=== PATIENT | female | born 1960 | race Caucasian/White ===

== ENCOUNTER → 2016-11-04 | Outpatient (CLI) | payer OTHER ==
[~2016-11-04] MED LIST: CHLO25CA9 PO; CYAN1TAB PO; LORA1TAB PO; NICO-524 TRANSDERM
--- NOTE | 2016-11-04 19:47 | RADRPT ---
PROCEDURE: XR LEFT HIP. CLINICAL INDICATION: Left hip pain TECHNIQUE: 3 views of the left hip were performed. COMPARISON: CT scan dated 03/13/2014. FINDINGS: Since the prior CT scan, there has been progression of severe arthrosis of the right hip joint. Ther e is loss of sphericity of the femoral head and there is subcortical mixed sclerosis and lucency whi ch is most likely advanced arthrosis although it would be difficult to exclude avascular necrosis. L oss of sphericity indicates cortical collapse. Findings consist of bone on bone joint space narrowi ng with subcortical sclerosis and cyst formation and osteophyte formation. There is trochanteric en thesopathy. Bones are osteopenic. No acute fractures seen. No erosive changes are seen. IMPRESSION: 1. Progression of severe arthrosis of the right hip joint including loss of sphericity indicating c ortical collapse. 2. Subcortical mixed lucency and sclerosis is most likely advanced arthrosis but it would be diffic ult to exclude superimposed avascular necrosis. RPTAT: XX .Dante Blanton MD, MD Date Time Electronically viewed and signed by .Dante Blanton MD, on 11/04/2016 19:46 .T/
== END | disposition home or self-care (01) ==
LOC: HKI 10:37
PROVIDERS: ATTEND Orthopaedic Surgery
DX: M25.551 Pain in right hip (principal); M16.11 Unilateral primary osteoarthritis, right hip
CPT/HCPCS: 73502; G0463

== ENCOUNTER → 2017-01-25 | Outpatient (CLI) | payer OTHER | END | disposition home or self-care (01) | LOC: HKI 09:55 | PROVIDERS: ATTEND Orthopaedic Surgery | DX: M25.551 Pain in right hip (principal); M16.11 Unilateral primary osteoarthritis, right hip | CPT/HCPCS: G0463 ==

== ENCOUNTER 2017-01-31 05:06 | Inpatient (IN) | payer OTHER ==
[2017-01-25 12:46] VITALS: BMI 23.3
[~2017-01-31] VITALS: Ht 158.8 cm; Wt 57.3 kg
[2017-01-31] VITALS (25 sets, daily range): BP systolic 115–157; BP diastolic 60–83; PULSE 60–86; RESP 16–30; Ht 158.8 cm; Wt 57.3 kg
[2017-01-31] MEDS ORDERED: ONDANSETRON 4 MG IV X 1 DOSE IV ONE (06:00)
[2017-01-31] MEDS ORDERED: CEFAZOLIN 2GM/50 ML (PMX) 50 ML X1 BEFORE INCISION IVPB ONE (06:00)
[2017-01-31] MEDS: LACTATED RINGER'S 1,000 ML IV SCH ×4 (06:00→17:49)
[2017-01-31] MEDS ORDERED: TRANEXAMIC ACID IV ONE ×2 (06:00)
[2017-01-31] MEDS ORDERED: SODIUM CHLORIDE 0.9% IV ONE ×2 (06:00)
[2017-01-31] MEDS ORDERED: oxyCODONE (CR) 10 MG TAB [oxyCONTIN] X1 DOSE PO ONE (06:00)
[2017-01-31] MEDS ORDERED: PREGABALIN 300 MG PO X1 PO ONE (06:00)
[2017-01-31] MEDS ORDERED: traMADOL 50 MG TAB X 1 DOSE PO ONE (06:00)
[2017-01-31] MEDS ORDERED: CEFAZOLIN 1 GM INJ ONE (07:00)
[2017-01-31] MEDS ORDERED: EPHEDrine SULFATE 50 MG/5 ML SYG ONE (07:00)
[2017-01-31] MEDS ORDERED: BUPIVACAINE LIPOSOME/PF 266 MG/20 ML VIAL INFIL ONE (07:00)
[2017-01-31] MEDS ORDERED: PAIN COCKTAIL-CEFUROXIME IRR ONE ×7 (07:00)
[2017-01-31] MEDS ORDERED: POTASSIUM PO (07:03)
[2017-01-31] MEDS ORDERED: MAGN400T28 PO (07:03)
[2017-01-31] MEDS ORDERED: CHOL100062 PO (07:03)
[2017-01-31] MEDS: TRANEXAMIC ACID IVPB ONE ×2 (07:14→08:17)
[2017-01-31] MEDS: SOD CHLORIDE 0.9% IVPB ONE ×2 (07:14→08:17)
--- NOTE | 2017-01-31 07:15 | HPN ---
Date/Time of Note Date/Time of Note DATE: 01/31/17 TIME: 07:15 Interval H&P Admission Note Pt. seen H&P reviewed: No system changes No changes from H&P on 01/19/17 by JESSICA Hickman MD Jan 31, 2017 07:15
[2017-01-31] MEDS ORDERED: POLYMYXIN B 500000 UNIT INJ IRR ONE (08:14)
[2017-01-31] MEDS ORDERED: VANCOMYCIN 1 GM INJ IRR ONE (08:14)
[2017-01-31] MEDS ORDERED: BACITRACIN 50000 UNITS INJ IRR ONE (08:14)
[2017-01-31] MEDS ORDERED: SODIUM CL BACTERIOSTATIC 30 ML INJ INJ ONE (08:15)
[2017-01-31] MEDS ORDERED: ONDANSETRON 4 MG INJ IV PRN ×2 (10:00→10:30)
[2017-01-31] MEDS ORDERED: NA PHOSPHATE/BIPHOS 133 ML ENEMA PR PRN (10:00)
[2017-01-31] MEDS ORDERED: MAGNESIUM HYDROXIDE 30ML CUP PO PRN (10:00)
[2017-01-31] MEDS ORDERED: NACL 0.9% 3 ML SYG IV SCH (10:00)
[2017-01-31] MEDS ORDERED: BISACODYL 10 MG SUPP PR PRN (10:00)
[2017-01-31] MEDS ORDERED: ASPIRIN (EC) 325 MG TAB PO ONE (10:00)
--- NOTE | 2017-01-31 10:02 | PN ---
Date/Time of Note Date/Time of Note DATE: 01/31/17 TIME: 10:00 Assessment/Plan Lines/Catheters IV Catheter Type (from Nrsg): Peripheral IV Assessment/Plan Assessment/Plan Stable in PACU, s/p right anterior HUMBLE -continue Ancef -pain meds as needed -ASA/SCDs -OOB with PT -check AM labs -monitor drain -d/c estrella in AM XR of the right hip is pending at this time Subjective 24 Hr Interval Summary Stable in PACU. Eating ice chips. Denies pain. Moving all extremities. Exam/Review of Systems Vital Signs Vitals Vital Signs Date Time Temp Pulse Resp B/P Pulse Ox O2 Delivery O2 Flow Rate FiO2 01/31/17 05:49 97.2 60 18 142/83 97 Room Air Exam Free Text/Dictation Hemovac: minimal Dressing dry Incision clean, dry, and intact without redness or drainage 5/5 Quadriceps, Tibialis Anterior, EHL, Gastroc, Soleus, Peroneals Normal sensation Palpable DT/PT, CR <2 sec No distal edema FARZANA CABRERA PA-C Jan 31, 2017 10:02
--- NOTE | 2017-01-31 10:03 | OPR ---
Date/Time of Note Date/Time of Note DATE: 01/31/17 TIME: 10:00 Operative Report Anesthesia: general Procedure Description DATE: 01/31/2017 PREOPERATIVE DIAGNOSIS: Right hip osteoarthritis POSTOPERATIVE DIAGNOSIS: Right hip osteoarthritis OPERATION PERFORMED: Right anterior total hip arthroplasty SURGEON: Jessica Logan MD SYSTEMS ADMINISTRATOR: Trev Burton PA-C COMPONENTS USED: DePuy size 48 mm Gription [place] cup, one 6.5 millimeter screw, 48/32 neutral Ultrex polyethylene liner, size 3 standard Actis stem, 32+ 5 ceramic head ANESTHESIA: Spinal plus general endotracheal intubation. ANESTHESIOLOGIST: Jackie Carmichael M.D. ESTIMATED BLOOD LOSS: 300 cc INTRAVENOUS FLUIDS: 1900 cc crystalloid SPECIMENS: Femoral head. DRAINS: Hemovac 1 COMPLICATIONS: None. DISPOSITION: The patient tolerated the procedure well and was taken to the recovery room in stable condition. INDICATIONS: The patient is a 56-year-old woman who has developed progressively worsening pain in the right hip with radiographic evidence of severe osteoarthritis. She has failed nonsurgical means of treatment to address her pain. I felt the patient would benefit from a total hip arthroplasty through an anterior approach. The risks, benefits, and alternatives of the procedure were explained in detail to the patient. I explained the risks of the surgery to include, but not be limited to: bleeding and possible need for blood transfusion; infection; pain; stiffness; neurovascular injury with possible numbness, weakness, and/or paralysis anywhere from the hip down to the toes; fracture; instability; dislocation; leg length inequality; wear and/or loosening of the prosthesis and possible need for future revision; blood clots; pulmonary embolism; and anesthetic complications such as heart attack, stroke, GI bleed, pneumonia, and/ or . Ample time was allowed for the patient to ask questions, all of which were addressed and answered. The patient understood the risks involved and wished to proceed. Informed consent was signed prior to the procedure. PROCEDURE: The patient's right hip was initialed with a marking pen in the preoperative area to identify the correct operative site. The patient was brought to the operating room and transferred from the [facility] to the [facility] where a spinal anesthetic was administered. The patient was then anesthetized and intubated. A Nunn catheter was placed. Both feet were placed into well padded boots which were then placed into the leg holders of the traction booms. A timeout was performed to confirm that the right side was the correct operative site. The patient was given 2 g of intravenous Ancef within one hour prior to the procedure. The operative hip was prepped and draped in the usual sterile fashion. A 10 cm oblique incision was made over the anterior aspect of the hip and carried down through subcutaneous tissue and fat with sharp dissection. The tensor fascia yousif was incised along the length of the wound. The tensor fascia muscle was retracted laterally and the sartorius medially. The anterior circumflex vessels were identified and tied off with 2-0 silk suture and coagulated with the Tissue Link dobby loom chain pegger. The rectus femoris was elevated off the anterior capsule and an anterior capsulectomy performed. A femoral neck osteotomy was made and the head removed from the acetabulum. The acetabulum was denuded of cartilage circumferentially, as was the femoral head. Retractors were placed around the acetabulum. The remnants of the labrum and ligamentum teres were excised. I reamed the acetabulum to the medial wall and then went into an anatomic position and increased the reamer size in 2 mm increments until I got a good bite and was down to bleeding subchondral bone. The [place] cup was opened and impacted into the acetabulum and sat flush circumferentially, getting a good bite. C-arm imaging showed it had about 40 to 45 degrees of abduction and 20 degrees of anteversion. A single 6.5 screw was drilled and filled to appropriate length, getting a good bite. remove this sentence if no screws are utilized] The real liner was opened and impacted into the acetabulum and sat flush circumferentially. Attention was turned towards the femur. The operative leg was carefully lowered to the floor with the leg adducted. The foot was then externally rotated to approximately 110 degrees. A posteromedial release was performed to optimize exposure. The femoral hook was placed underneath the proximal femur and the hydraulic lift was then used to elevate the femur up out of the wound. The gisselle cutter osteotome was used to remove the remaining overhanging greater trochanter. The femur was then broached, going up in one size increments until it sat flush with the neck cut and a stable fit was achieved. The trial neck and head were assembled and reduced into the acetabulum. Fluoroscopic imaging showed the components to be in good position and the leg lengths and offsets to be equal. At this point, the trial was dislocated and the trial broach removed. The canal was irrigated and dried. The real stem was opened and impacted into the femur. The trunnion was irrigated and dried, and the real femoral head was impacted onto the trunnion, and reduced into the acetabulum. The soft tissues were infiltrated with a mixture of 150 mg of 0.5% Bupivacaine, 8 mg of Duramorph, 300 mcg of epinephrine, 30 mg of Toradol, 100 mcg of clonidine, 750 mg of cefuroxime and 86 mL of normal saline, followed by an injection of 266 mg of liposomal Bupivacaine. At this point the hip was irrigated with a mixture of betadine/saline and then antibiotic saline with pulsatile lavage. A Hemovac drain was placed in the deep portion of the wound and brought out the anterolateral thigh. There was good hemostasis. The tensor fascia yousif was repaired with a running #1 Vicryl. The deep fat layer was irrigated and closed with 2-0 Stratafix and the subcutaneous layer closed with 3 -0 Vicryl and the skin was closed with luly and then sealed with Dermabond. The drain was secured with 3-0 nylon. The sponge and needle counts were correct at the end of the case. The wound was covered with an occlusive dressing. The patient was awakened, extubated, and taken to the recovery room in stable condition. JESSICA LOGAN MD Jan 31, 2017 10:03
[2017-01-31] MEDS ORDERED: METOCLOPRAMIDE 10 MG INJ IV PRN (10:30)
[2017-01-31] MEDS ORDERED: DIPHENHYDRAMINE 50 MG INJ IV PRN (10:30)
[2017-01-31] MEDS ORDERED: HYDROmorphONE (0.2 MG/ML) 10ML SYG IV PRN ×3 (10:30)
[2017-01-31] MEDS ORDERED: MEPERIDINE 25 MG INJ IV PRN (10:30)
[2017-01-31] MEDS: CEFAZOLIN 2 GM/50 ML (PMX) 50 ML IVPB SCH ×2 (10:42→17:50)
--- NOTE | 2017-01-31 11:32 | RADRPT ---
PROCEDURE: XR Pelvis. CLINICAL INDICATION: Recent right hip arthroplasty TECHNIQUE: Single AP view of the pelvis. COMPARISON: 11/04/2016 FINDINGS: There is a recent right hip arthroplasty in place with anatomic alignment. No acute fracture or dis location is seen. Postsurgical skin luly and soft tissue drain and gas is seen. Bladder cathete r is also present. Remainder of the pelvis appears intact without evidence of fractures or dislocat ion. Left hip is unremarkable.. Sacroiliac joints and pubic symphysis are unremarkable. IMPRESSION: Recent right hip arthroplasty. RPTAT: JJ .Wilfredo Alvarez MD, MD Date Time Electronically viewed and signed by .Wilfredo Alvarez MD, MD on 01/31/2017 11:32 .L/
--- NOTE | 2017-01-31 11:33 | RADRPT ---
PROCEDURE: Right hip series CLINICAL INDICATION: Right hip arthroplasty TECHNIQUE: Single AP view of the right hip is submitted COMPARISON: 11/04/2016 FINDINGS: There has been recent right hip arthroplasty with anatomic alignment. No evidence of fractures or d islocation.. Postsurgical changes with skin luly and soft tissue drain and gas are present. Visu alized portions of the pelvis are intact. IMPRESSION: Recent right hip arthroplasty. RPTAT: JJ .Wilfredo Alvarez MD, MD Date Time Electronically viewed and signed by .Wilfredo Alvarez MD, on 01/31/2017 11:32 .L/
--- NOTE | 2017-01-31 11:36 | RADRPT ---
PROCEDURE: Fluoroscopy CLINICAL INDICATION: Right hip arthroplasty. TECHNIQUE: 0.5 minutes fluoroscopic time utilized by Dr. Mccoy for procedure. 16 images/sequences of are submitted. COMPARISON: None FINDINGS: Right hip arthroplasty in progress is demonstrated. IMPRESSION: Fluoroscopy utilized by Dr. Mccoy for right hip arthroplasty Please see procedural report for complete details. RPTAT: JJ .Wilfredo Alvarez MD, Date Time Electronically viewed and signed by .Wilfredo Alvraez MD, on 01/31/2017 11:36 .L/
[2017-01-31 11:40] LABS: HEMATOCRIT 34.1 % (37.0-47.0); HEMOGLOBIN 11.5 g/dl (12.0-16.0)
[2017-01-31 11:42] LABS: CALCIUM 8.9 mg/dl (8.4-10.2); CREATININE 0.44 mg/dl (0.44-1.00); POTASSIUM 4.1 mmol/L (3.5-5.1)
--- NOTE | 2017-01-31 12:55 | PREOPHP ---
DATE OF ADMISSION: 01/31/2017 Dictated By: Tejinder Mccoy MD /brent/vijaya /Document#: [id number]
[2017-01-31] MEDS ORDERED: TRANEXAMIC ACID 570 MG in SOD CHLORIDE 0.9% 100 ML IVPB ONE ×2 (13:00→16:00)
[2017-01-31] MEDS: traMADol 50 MG TAB PO SCH ×3 (13:55→23:59)
[2017-01-31] MEDS ORDERED: EXPAREL NOTE (BUPIVICAINE LIPOSOMAL) XX SCH (16:00)
[2017-01-31] MEDS: PANTOPRAZOLE (EC) 40 MG TAB PO SCH (17:48)
[2017-01-31] MEDS: DOCUSATE SODIUM 100 MG CAP PO SCH (20:22)
[2017-01-31] MEDS: CHOLECALCIFEROL 1,000 UNIT TAB PO SCH (20:23)
[2017-01-31] MEDS: MAGNESIUM OXIDE 400 MG TAB PO SCH (20:23)
[2017-01-31] MEDS: DIPHENHYDRAMINE 25 MG CAP PO PRN (20:24)
[2017-01-31] MEDS: HYDROmorphONE 1 MG/ML SYG IV PRN ×2 (20:24→23:39)
[2017-01-31] MEDS: DIPHENHYDRAMINE 50 MG INJ IV PRN (21:34)
[2017-02-01] MEDS: LACTATED RINGER'S 1,000 ML IV SCH ×6 (01:49→22:00)
[2017-02-01] MEDS: CEFAZOLIN 2 GM/50 ML (PMX) 50 ML IVPB SCH (02:02)
[2017-02-01] MEDS: HYDROmorphONE 1 MG/ML SYG IV PRN ×3 (03:19→20:17)
[2017-02-01 05:20] LABS: HEMOGLOBIN 10.9 g/dl (12.0-16.0)
[2017-02-01] MEDS: PANTOPRAZOLE (EC) 40 MG TAB PO SCH ×2 (05:35→18:15)
[2017-02-01] MEDS: traMADol 50 MG TAB PO SCH ×4 (05:36→23:54)
[2017-02-01 05:38] LABS: CALCIUM 8.6 mg/dl (8.4-10.2); CREATININE 0.51 mg/dl (0.44-1.00); POTASSIUM 4.1 mmol/L (3.5-5.1)
[2017-02-01 05:54] LABS: MAGNESIUM 1.1 mg/dl (1.7-2.5); PHOSPHORUS 3.7 mg/dl (2.5-4.9)
[2017-02-01 06:39] LABS: ADD UMIC NO; UR ASCORBIC ACID NEGATIVE (NEGATIVE); UR BILIRUBIN (Dip) NEGATIVE (NEGATIVE); UR BLOOD (Dip) NEGATIVE (NEGATIVE); UR CLARITY CLEAR (CLEAR); UR COLOR STRAW (YELLOW); UR GLUCOSE (Dip) NEGATIVE (NEGATIVE); UR KETONES (Dip) NEGATIVE (NEGATIVE); UR LEUKOCYTE ESTERASE (Dip) NEGATIVE Leu/ul (NEGATIVE); UR NITRITE (Dip) NEGATIVE (NEGATIVE); UR SPECIFIC GRAVITY (Dip) 1.014 (1.003-1.030); UR TOTAL PROTEIN (Dip) NEGATIVE (NEGATIVE); UR UROBILINOGEN (Dip) NEGATIVE (NEGATIVE)
[2017-02-01 07:00] VITALS: BP 131/70; RESP 20
[2017-02-01] MEDS: HYDROCODONE/APAP (5/325) TAB PO PRN ×2 (07:55→07:59)
--- NOTE | 2017-02-01 08:36 | CONS ---
Date/Time of Note Date/Time of Note DATE: 02/01/17 TIME: 08:34 Assessment/Plan Assessment/Plan Additional Assessment/Plan 1. S/P right hip replacement, with severe pain, await ortho follow up 2. Hypomag, will replete Consultation Date/Type/Reason Admit Date/Time Jan 31, 2017 at 05:06 Initial Consult Date Detailed Summary Respiratory: No shortness of breath Cardiovascular: No chest pain Gastrointestinal: no complaints Genitourinary: other (estrella in place) Musculoskeletal: bone/joint pain (severe right hip pain which is limiting movement) Exam/Review of Systems Vital Signs Vitals Vital Signs Date Time Temp Pulse Resp B/P Pulse Ox O2 Delivery O2 Flow Rate FiO2 02/01/17 07:00 98.6 104 20 131/70 95 01/31/17 19:52 Room Air 01/31/17 14:25 2.0 Intake and Output 01/31/17 01/31/17 02/01/17 15:00 23:00 07:00 Intake Total 2111.4 ml 1225 ml 2675 ml Output Total 500 ml 450 ml 2120 ml Balance 1611.4 ml 775 ml 555 ml Exam Neck: No jvd Respiratory: clear to auscultation Cardiovascular: regular rate and rhythm Gastrointestinal: soft Extremities: No edema (and no calf tend) Results Result Diagram: 02/01/17 0437 02/01/17 0437 Results 24 hrs Laboratory Tests Test 01/31/17 10:43 02/01/17 04:20 02/01/17 04:37 Hemoglobin 11.5 L 10.9 L Hematocrit 34.1 L 32.0 L Sodium Level 145 H 139 Potassium Level 4.1 4.1 Chloride Level 102 97 Carbon Dioxide Level 29 31 Anion Gap 18 H 15 Blood Urea Nitrogen 8 4 L Creatinine 0.44 0.51 Glucose Level 88 134 # Calcium Level 8.9 8.6 Urine Color STRAW Urine Clarity CLEAR Urine pH 5.0 Urine Specific [place] 1.014 Urine Ketones NEGATIVE Urine Nitrite NEGATIVE Urine Bilirubin NEGATIVE Urine Urobilinogen NEGATIVE Urine Leukocyte Esterase NEGATIVE Urine Hemoglobin NEGATIVE Urine Glucose NEGATIVE Urine Total Protein NEGATIVE Phosphorus Level 3.7 Magnesium Level 1.1 L Medications Medications Current Medications Lactated Ringer's (Lr) 1,000 ml @ 100 mls/hr Q10H IV Last administered on 02/01t 02:02; Admin Dose 100 MLS/HR; Start 01/31/17 at 06:00 Miscellaneous Information 1 ea NOTE XX ; Start 01/31/17 at 16:00; Stop 02/04/17 at 15:59 Cholecalciferol (Vitamin D) 1,000 unit BID PO Last administered on 01/31/17 20 :23; Admin Dose 1,000 UNIT; Start 01/31/17 at 21:00 Magnesium Oxide 500 mg 500 mg BID PO Last administered on 01/31/17 20:23; Admin Dose 500 MG; Start 01/31/17 at 21:00 Lactated Ringer's (Lr) 1,000 ml @ 125 mls/hr Q8H IV Last administered on 13:58; Admin Dose 125 MLS/HR; Start 01/31/17 at 09:49 Tramadol HCl (Ultram) 50 mg Q6 PO Last administered on 02/01/17 05:36; Admin Dose 50 MG; Start 01/31/17 at 12:00; Stop 02/03/17 at 11:59 Acetaminophen/ Hydrocodone Bitart ([place] (5/325)) 1 tab Q4H PRN PO PAIN LEVEL 1 -3; Start 01/31/17 at 10:00 Acetaminophen/ Hydrocodone Bitart ([place] (5/325)) 2 tab Q4H PRN PO PAIN LEVEL 4 -7 Last administered on 02/01/17 07:59; Admin Dose 2 TAB; Start 01/31/17 at 10: 00 Hydromorphone HCl (Dilaudid) 1 mg Q3H PRN IV PAIN LEVEL 8-10 Last administered on 02/01/17 03:19; Admin Dose 1 MG; Start 01/31/17 at 10:00 Ondansetron HCl (Zofran Inj) 4 mg Q6H PRN IV NAUSEA AND/OR VOMITING; Start at 10:00 Bisacodyl (Dulcolax Supp) 10 mg Q12H PRN [place] CONSTIPATION; Start 01/31/17 at 10: 00 Magnesium Hydroxide (Milk Of Mag) 30 ml BID PRN PO CONSTIPATION; Start at 10:00 Sodium Biphosphate/ Sodium Phosphate (Fleet Enema) 133 ml DAILY PRN [place] CONSTIPATION; Start 01/31/17 at 10:00 Docusate Sodium (Colace) 100 mg BID PO Last administered on 01/31/17 20:22; Admin Dose 100 MG; Start 01/31/17 at 21:00 Diphenhydramine HCl (Benadryl) 25 mg Q6H PRN PO PRURITUS Last administered on 20:24; Admin Dose 25 MG; Start 01/31/17 at 10:00 Aspirin (Ecotrin) 325 mg BID PO ; Start 02/01/17 at 09:00 Pantoprazole (Protonix Tab) 40 mg BID@06,18 PO Last administered on 02/01/17 05:35; Admin Dose 40 MG; Start 01/31/17 at 18:00 Diphenhydramine HCl (Benadryl) 25 mg Q6H PRN IV itchiness Last administered on 01/31/17 21:34; Admin Dose 25 MG; Start 01/31/17 at 21:30 MARIO JEAN BAPTISTE MD Feb 01, 2017 08:36
--- NOTE | 2017-02-01 08:47 | PN ---
Date/Time of Note Date/Time of Note DATE: 02/01/17 TIME: 08:46 Assessment/Plan Lines/Catheters IV Catheter Type (from Nrsg): Peripheral IV Nunn in Place (from Nrsg): Yes Assessment/Plan Assessment/Plan Stable, POD #1, s/p right anterior HUMBLE -d/c Ancef -pain meds as needed -ASA/SCDs -drain removed -OOB with PT -check AM labs -d/c planning Subjective 24 Hr Interval Summary No acute overnight events. Having mild pain. Began PT yesterday. VSS, afebrile. Will plan to go home upon discharge. Exam/Review of Systems Vital Signs Vitals Vital Signs Date Time Temp Pulse Resp B/P Pulse Ox O2 Delivery O2 Flow Rate FiO2 02/01/17 07:00 98.6 104 20 131/70 95 01/31/17 19:52 Room Air 01/31/17 14:25 2.0 Intake and Output 01/31/17 01/31/17 02/01/17 15:00 23:00 07:00 Intake Total 2111.4 ml 1225 ml 2675 ml Output Total 500 ml 450 ml 2120 ml Balance 1611.4 ml 775 ml 555 ml Exam Free Text/Dictation Hemovac: 120cc Dressing dry Incision clean, dry, and intact without redness or drainage 5/5 Quadriceps, Tibialis Anterior, EHL, Gastroc, Soleus, Peroneals Normal sensation Palpable DT/PT, CR <2 sec No distal edema Results Result Diagram: 02/01/17 0437 02/01/17 0437 FARZANA CABRERA PA-C Feb 01, 2017 08:47
[2017-02-01] MEDS ORDERED: MAGNESIUM SULFATE 3 GM in SOD CHLORIDE 0.9% 100 ML IVPB ONE (09:00)
[2017-02-01] MEDS: DOCUSATE SODIUM 100 MG CAP PO SCH ×2 (10:22→20:16)
[2017-02-01] MEDS: ASPIRIN (EC) 325 MG TAB PO SCH ×2 (10:24→20:16)
[2017-02-01] MEDS: CHOLECALCIFEROL 1,000 UNIT TAB PO SCH ×2 (10:25→20:16)
[2017-02-01] MEDS: MAGNESIUM OXIDE 400 MG TAB PO SCH ×2 (10:30→20:16)
--- NOTE | 2017-02-01 10:58 | PN ---
Date/Time of Note Date/Time of Note DATE: 02/01/17 TIME: 10:55 Assessment/Plan VTE Prophylaxis VTE Prophylaxis Intervention: ambulation Lines/Catheters IV Catheter Type (from Nrsg): Peripheral IV Urinary Cath still in place: Yes Subjective 24 Hr Interval Summary Free Text/Dictation Anesthesia note: A 56 year female s/pTHR with spinal, GA POD #1 ia doing well. no N/V, Itching, baclk apin, pain is controlled. ambulating. care per surgery Exam/Review of Systems Vital Signs Vitals Vital Signs Date Time Temp Pulse Resp B/P Pulse Ox O2 Delivery O2 Flow Rate FiO2 02/01/17 07:00 98.6 104 20 131/70 95 01/31/17 19:52 Room Air 01/31/17 14:25 2.0 Intake and Output 01/31/17 01/31/17 02/01/17 15:00 23:00 07:00 Intake Total 2111.4 ml 1225 ml 2675 ml Output Total 500 ml 450 ml 2120 ml Balance 1611.4 ml 775 ml 555 ml Results Result Diagram: 02/01/17 0437 02/01/17 0437 Results 24 hrs Laboratory Tests Test 02/01/17 04:20 02/01/17 04:37 Urine Color STRAW Urine Clarity CLEAR Urine pH 5.0 Urine Specific [place] 1.014 Urine Ketones NEGATIVE Urine Nitrite NEGATIVE Urine Bilirubin NEGATIVE Urine Urobilinogen NEGATIVE Urine Leukocyte Esterase NEGATIVE Urine Hemoglobin NEGATIVE Urine Glucose NEGATIVE Urine Total Protein NEGATIVE Hemoglobin 10.9 L Hematocrit 32.0 L Sodium Level 139 Potassium Level 4.1 Chloride Level 97 Carbon Dioxide Level 31 Anion Gap 15 Blood Urea Nitrogen 4 L Creatinine 0.51 Glucose Level 134 # Calcium Level 8.6 Phosphorus Level 3.7 Magnesium Level 1.1 L Medications Medications Current Medications Lactated Ringer's (Lr) 1,000 ml @ 100 mls/hr Q10H IV Last administered on 02/01 02:02; Admin Dose 100 MLS/HR; Start 01/31/17 at 06:00 Miscellaneous Information 1 ea NOTE XX ; Start 01/31/17 at 16:00; Stop 02/04/17 at 15:59 Cholecalciferol (Vitamin D) 1,000 unit BID PO Last administered on 02/01/17 10 :25; Admin Dose 1,000 UNIT; Start 01/31/17 at 21:00 Magnesium Oxide 500 mg 500 mg BID PO Last administered on 02/01/17 10:30; Admin Dose 500 MG; Start 01/31/17 at 21:00 Lactated Ringer's (Lr) 1,000 ml @ 125 mls/hr Q8H IV Last administered on 13:58; Admin Dose 125 MLS/HR; Start 01/31/17 at 09:49 Tramadol HCl (Ultram) 50 mg Q6 PO Last administered on 02/01/17 05:36; Admin Dose 50 MG; Start 01/31/17 at 12:00; Stop 02/03/17 at 11:59 Acetaminophen/ Hydrocodone Bitart ([place] (5/325)) 1 tab Q4H PRN PO PAIN LEVEL 1 -3; Start 01/31/17 at 10:00 Acetaminophen/ Hydrocodone Bitart ([place] (5/325)) 2 tab Q4H PRN PO PAIN LEVEL 4 -7 Last administered on 02/01/17 07:59; Admin Dose 2 TAB; Start 01/31/17 at 10: 00 Hydromorphone HCl (Dilaudid) 1 mg Q3H PRN IV PAIN LEVEL 8-10 Last administered on 02/01/17 03:19; Admin Dose 1 MG; Start 01/31/17 at 10:00 Ondansetron HCl (Zofran Inj) 4 mg Q6H PRN IV NAUSEA AND/OR VOMITING Last administered on 02/01/17 09:07; Admin Dose 4 MG; Start 01/31/17 at 10:00 Bisacodyl (Dulcolax Supp) 10 mg Q12H PRN [place] CONSTIPATION; Start 01/31/17 at 10: 00 Magnesium Hydroxide (Milk Of Mag) 30 ml BID PRN PO CONSTIPATION; Start at 10:00 Sodium Biphosphate/ Sodium Phosphate (Fleet Enema) 133 ml DAILY PRN [place] CONSTIPATION; Start 01/31/17 at 10:00 Docusate Sodium (Colace) 100 mg BID PO Last administered on 02/01/17 10:22; Admin Dose 100 MG; Start 01/31/17 at 21:00 Diphenhydramine HCl (Benadryl) 25 mg Q6H PRN PO PRURITUS Last administered on 20:24; Admin Dose 25 MG; Start 01/31/17 at 10:00 Aspirin (Ecotrin) 325 mg BID PO Last administered on 02/01/17 10:24; Admin Dose 325 MG; Start 02/01/17 at 09:00 Pantoprazole (Protonix Tab) 40 mg BID@06,18 PO Last administered on 02/01/17 05:35; Admin Dose 40 MG; Start 01/31/17 at 18:00 Diphenhydramine HCl 25 mg 25 mg Q6H PRN IV itchiness Last administered on 21:34; Admin Dose 25 MG; Start 01/31/17 at 21:30 Magnesium Sulfate/ Sodium Chloride (Magnesium Sulfate/NS) 106 ml @ 35.333 mls/ hr ONCE ONCE IVPB Last administered on 02/01/17 10:31; Admin Dose 35.333 MLS/ HR; Start 02/01/17 at 09:00; Stop 02/01/17 at 11:59 ELEANOR ABDALLA MD Feb 01, 2017 10:58
[2017-02-01] MEDS: DIPHENHYDRAMINE 50 MG INJ IV PRN ×2 (12:09→12:25)
[2017-02-01] MEDS ORDERED: FENTAnyl 50 MCG/ML VIAL ONE (18:01)
[2017-02-01] MEDS ORDERED: SODIUM CL BACTERIOSTATIC 30 ML INJ ONE (18:01)
[2017-02-01] MEDS ORDERED: PROPOFOL 100 ML ONE (18:01)
[2017-02-01] MEDS ORDERED: METOCLOPRAMIDE 10 MG INJ ONE (18:01)
[2017-02-01] MEDS ORDERED: POLYMYXIN B 500000 UNIT INJ ONE (18:01)
[2017-02-01] MEDS ORDERED: MIDAZOLAM 1 MG/ML 2 ML INJ ONE (18:01)
[2017-02-01] MEDS ORDERED: VANCOMYCIN 1 GM INJ ONE (18:01)
[2017-02-01] MEDS ORDERED: PROPOFOL 20 ML ONE (18:01)
[2017-02-01] MEDS ORDERED: MEPERIDINE 25 MG INJ ONE (18:02)
[2017-02-01 20:07] VITALS: BP 140/66; RESP 18
[2017-02-01] MEDS: DIPHENHYDRAMINE 25 MG CAP PO PRN (20:16)
[2017-02-02] MEDS: LACTATED RINGER'S 1,000 ML IV SCH ×5 (01:49→17:23)
[2017-02-02 05:32] LABS: BASOPHILS % 0.3 % (0.0-2.0); EOSINOPHILS # 0.2 10^3/ul (0.0-0.5); EOSINOPHILS % 2.3 % (0.0-7.0); HEMATOCRIT 30.9 % (37.0-47.0); HEMOGLOBIN 10.6 g/dl (12.0-16.0); LYMPHOCYTES # 1.1 10^3/ul (0.8-2.9); LYMPHOCYTES % 13.7 % (15.0-51.0); MEAN CORPUSCULAR HEMOGLOBIN 33.8 pg (29.0-33.0); MEAN CORPUSCULAR HGB CONC 34.3 g/dl (32.0-37.0); MEAN CORPUSCULAR VOLUME 98.4 fl (82.0-101.0); MONOCYTE # 0.4 10^3/ul (0.3-0.9); MONOCYTES % 4.5 % (0.0-11.0); NEUTROPHIL # 6.3 10^3/ul (1.6-7.5); NEUTROPHILS % 78.8 % (39.0-77.0); PLATELET COUNT 243 10^3/UL (140-415); RED BLOOD COUNT 3.14 10^6/ul (4.20-5.40); RED CELL DISTRIBUTION WIDTH 12.7 % (11.5-14.5)
[2017-02-02] MEDS: PANTOPRAZOLE (EC) 40 MG TAB PO SCH ×2 (05:35→18:04)
[2017-02-02] MEDS: traMADol 50 MG TAB PO SCH ×3 (05:36→18:05)
[2017-02-02 05:58] LABS: MAGNESIUM 1.6 mg/dl (1.7-2.5); PHOSPHORUS 3.1 mg/dl (2.5-4.9)
[2017-02-02 06:23] LABS: CALCIUM 8.9 mg/dl (8.4-10.2); CREATININE 0.44 mg/dl (0.44-1.00); POTASSIUM 3.9 mmol/L (3.5-5.1)
[2017-02-02 07:45] VITALS: BP 139/72; RESP 20
--- NOTE | 2017-02-02 07:51 | CONS ---
Date/Time of Note Date/Time of Note DATE: 02/02/17 TIME: 07:48 Assessment/Plan Assessment/Plan Additional Assessment/Plan 1. Doing well post op right hip replacement 2. Hypomag sec to renal leak with IV's (NACL) increasing this sec to inc salt excretion, will replete and check Vit D and PTH, Urine Mag and Creat obtained to confirm "leak". Consultation Date/Type/Reason Admit Date/Time Jan 31, 2017 at 05:06 Detailed Summary Respiratory: No cough, No shortness of breath Cardiovascular: No chest pain Gastrointestinal: No diarrhea, No no complaints Genitourinary: No no complaints Musculoskeletal: bone/joint pain (less right hip pain today) Exam/Review of Systems Vital Signs Vitals Vital Signs Date Time Temp Pulse Resp B/P Pulse Ox O2 Delivery O2 Flow Rate FiO2 02/02/17 07:45 99.6 89 20 139/72 93 01/31/17 19:52 Room Air 01/31/17 14:25 2.0 Intake and Output 02/01/17 02/01/17 02/02/17 15:00 23:00 07:00 Intake Total 1800 ml 450 ml Output Total 700 ml Balance 1100 ml 450 ml Exam Neck: No jvd Respiratory: clear to auscultation Cardiovascular: regular rate and rhythm Gastrointestinal: soft Extremities: No edema (and no calf tend) Results Result Diagram: 02/02/17 0438 02/02/17 0438 Results 24 hrs Laboratory Tests Test 02/01/17 16:21 02/02/17 04:38 Magnesium Level 2.1 # 1.6 L White Blood Count 8.0 Red Blood Count 3.14 L Hemoglobin 10.6 L Hematocrit 30.9 L Mean Corpuscular Volume 98.4 Mean Corpuscular Hemoglobin 33.8 H Mean Corpuscular Hemoglobin Concent 34.3 Red Cell Distribution Width 12.7 Platelet Count 243 Mean Platelet Volume 9.0 # Neutrophils % 78.8 H Lymphocytes % 13.7 L Monocytes % 4.5 Eosinophils % 2.3 Basophils % 0.3 Nucleated Red Blood Cells % 0.0 Neutrophils # 6.3 Lymphocytes # 1.1 Monocytes # 0.4 Eosinophils # 0.2 Basophils # 0.0 Nucleated Red Blood Cells # 0.0 Sodium Level 139 Potassium Level 3.9 Chloride Level 95 L Carbon Dioxide Level 32 H Anion Gap 16 Blood Urea Nitrogen 4 L Creatinine 0.44 Glucose Level 147 Calcium Level 8.9 Phosphorus Level 3.1 Medications Medications Current Medications Lactated Ringer's (Lr) 1,000 ml @ 100 mls/hr Q10H IV Last administered on 02/01 02:02; Admin Dose 100 MLS/HR; Start 01/31/17 at 06:00 Miscellaneous Information 1 ea NOTE XX ; Start 01/31/17 at 16:00; Stop 02/04/17 at 15:59 Cholecalciferol (Vitamin D) 1,000 unit BID PO Last administered on 02/01/17 20 :16; Admin Dose 1,000 UNIT; Start 01/31/17 at 21:00 Magnesium Oxide 500 mg 500 mg BID PO Last administered on 02/01/17 20:16; Admin Dose 500 MG; Start 01/31/17 at 21:00 Lactated Ringer's (Lr) 1,000 ml @ 125 mls/hr Q8H IV Last administered on 13:58; Admin Dose 125 MLS/HR; Start 01/31/17 at 09:49 Tramadol HCl (Ultram) 50 mg Q6 PO Last administered on 02/02/17 05:36; Admin Dose 50 MG; Start 01/31/17 at 12:00; Stop 02/03/17 at 11:59 Acetaminophen/ Hydrocodone Bitart ([place] (5/325)) 1 tab Q4H PRN PO PAIN LEVEL 1 -3; Start 01/31/17 at 10:00 Acetaminophen/ Hydrocodone Bitart ([place] (5/325)) 2 tab Q4H PRN PO PAIN LEVEL 4 -7 Last administered on 02/01/17 07:59; Admin Dose 2 TAB; Start 01/31/17 at 10: 00 Hydromorphone HCl (Dilaudid) 1 mg Q3H PRN IV PAIN LEVEL 8-10 Last administered on 02/01/17 20:17; Admin Dose 1 MG; Start 01/31/17 at 10:00 Ondansetron HCl (Zofran Inj) 4 mg Q6H PRN IV NAUSEA AND/OR VOMITING Last administered on 02/01/17 09:07; Admin Dose 4 MG; Start 01/31/17 at 10:00 Bisacodyl (Dulcolax Supp) 10 mg Q12H PRN [place] CONSTIPATION; Start 01/31/17 at 10: 00 Magnesium Hydroxide (Milk Of Mag) 30 ml BID PRN PO CONSTIPATION; Start at 10:00 Sodium Biphosphate/ Sodium Phosphate (Fleet Enema) 133 ml DAILY PRN [place] CONSTIPATION; Start 01/31/17 at 10:00 Docusate Sodium (Colace) 100 mg BID PO Last administered on 02/01/17 20:16; Admin Dose 100 MG; Start 01/31/17 at 21:00 Diphenhydramine HCl (Benadryl) 25 mg Q6H PRN PO PRURITUS Last administered on 20:16; Admin Dose 25 MG; Start 01/31/17 at 10:00 Aspirin (Ecotrin) 325 mg BID PO Last administered on 02/01/17 20:16; Admin Dose 325 MG; Start 02/01/17 at 09:00 Pantoprazole (Protonix Tab) 40 mg BID@06,18 PO Last administered on 02/02/17 05:35; Admin Dose 40 MG; Start 01/31/17 at 18:00 Diphenhydramine HCl (Benadryl) 25 mg Q6H PRN IV itchiness Last administered on 02/01/17 12:25; Admin Dose 25 MG; Start 01/31/17 at 21:30 MARIO JEAN BAPTISTE MD Feb 02, 2017 07:51
[2017-02-02] MEDS: DOCUSATE SODIUM 100 MG CAP PO SCH ×2 (08:48→20:06)
[2017-02-02] MEDS: ASPIRIN (EC) 325 MG TAB PO SCH ×2 (08:48→20:06)
[2017-02-02] MEDS: CHOLECALCIFEROL 1,000 UNIT TAB PO SCH ×2 (08:49→20:06)
[2017-02-02] MEDS: MAGNESIUM OXIDE 400 MG TAB PO SCH ×2 (08:49→20:06)
[2017-02-02] MEDS: DIPHENHYDRAMINE 25 MG CAP PO PRN ×3 (08:49→22:41)
[2017-02-02] MEDS: HYDROCODONE/APAP (5/325) TAB PO PRN ×3 (08:50→22:41)
[2017-02-02] MEDS ORDERED: MAGNESIUM SULFATE 3 GM in SOD CHLORIDE 0.9% 100 ML IVPB ONE (09:00)
--- NOTE | 2017-02-02 09:56 | PREOPHP ---
DATE OF ADMISSION: 01/25/2017 REASON FOR ADMISSION: Severe pain, hip. HISTORY OF PRESENT ILLNESS: This 56-year-old female had multiple surgeries, now is admitted to [facility] to undergo total hip replacement. The patient has the following medical problems: Recurrent diverticulitis with resection and colostomy, which was repaired; Severe peripheral vascular disease, causing need for angioplasty, which was repaired. There have been no previous surgical or anesthesia complications. CURRENT MEDICATIONS: 1. Lexapro 10 mg. 2. Potassium 20 mEq. 3. [id number], the patient takes magnesium 400 mg and Vitamin D3 2000 international units. 4. Occasionally, the patient has taken albuterol inhaler, presently is very stable. PAST MEDICAL HISTORY: She has increased anxiety and at times depression, for which the patient takes medication. ALLERGIES: Sulfa. SOCIAL HISTORY: The patient is a [id number] smoker. She presently recently quit. Alcohol, very heavy use, up to 4-5 a day, which she has reduced now to about 3 a day. FAMILY HISTORY: Noncontributory. PHYSICAL EXAMINATION: GENERAL: No acute distress. VITAL SIGNS: Height 5 feet, 2 inches. Weight 128 pounds. Blood pressure 135/70, pulse 60 and regular, respirations 15, temperature 97.4. HEENT: Head normocephalic. Eye exam shows right upper lid ptosis. Pupils respond to light. There are bilateral lens implants. EOM appears to be full. The patient wears glasses. Ears, nose, and throat shows normal hearing, no masses. Trachea is midline. Thyroid, some nodularity but normal size. No lymphadenopathy noted. Carotid pulsations normal. BREASTS AND PELVIC: The patient deferred to elementary secretary. HEART: PMI in the left fifth intercostal space, lateral to the mid clavicular line. No murmurs. No gallops noted. CHEST: Normal AP diameter. No tenderness, decreased expansion. Lungs are clear to percussion and auscultation. BACK: Shows some lumbosacral tenderness. ABDOMEN: Soft, nontender. No masses. Liver/spleen normal. EXTREMITIES: Shows tender right hip and right knee. No edema. NEUROLOGICAL: Gait and coordination normal for age. Romberg negative. Deep tendon reflexes are 1 to 2+ and symmetric. Cranial nerves are grossly intact. Sensory examination is normal. SKIN: No rash noted. IMPRESSION: 1. Severe degenerative arthritis, worse on the right hip and knee. 2. Recurrent diverticulitis. Colostomy now repaired. 3. Peripheral vascular disease, better after surgery. 4. Mild chronic obstructive pulmonary disease. 5. History of unusual amount of alcohol intake. PLAN: The patient is medically cleared for surgery. Dictated By: Dr. Kendall Verdin dictating for Dr. Tejinder Doran /brent/william /Document#: [id number]
--- NOTE | 2017-02-02 10:23 | PN ---
Date/Time of Note Date/Time of Note DATE: 02/02/17 TIME: 10:22 Assessment/Plan Lines/Catheters IV Catheter Type (from Nrsg): Peripheral IV Nunn in Place (from Nrsg): No Assessment/Plan Assessment/Plan Stable POD #2, s/p right anterior HUMBLE -pain meds as needed -ASA/SCDs -OOB with PT -check AM labs -dressing changed -correct electrolytes -discharge planning Subjective 24 Hr Interval Summary No acute overnight events. Having mild pain but controlled with the pain medication. H&H stable but mag low. Being managed by Dr. Edwards. Would like to go home tomorrow. Exam/Review of Systems Vital Signs Vitals Vital Signs Date Time Temp Pulse Resp B/P Pulse Ox O2 Delivery O2 Flow Rate FiO2 02/02/17 07:45 99.6 89 20 139/72 93 01/31/17 19:52 Room Air 01/31/17 14:25 2.0 Intake and Output 02/01/17 02/01/17 02/02/17 14:59 22:59 06:59 Intake Total 1800 ml 450 ml Output Total 700 ml Balance 1100 ml 450 ml Exam Free Text/Dictation Dressing dry Incision clean, dry, and intact without redness or drainage 5/5 Quadriceps, Tibialis Anterior, EHL, Gastroc, Soleus, Peroneals Normal sensation Palpable DT/PT, CR <2 sec No distal edema Results Result Diagram: 02/02/17 0438 02/02/17 0438 FARZANA CABRERA PA-C Feb 02, 2017 10:23
[2017-02-02 20:12] VITALS: BP 106/66; RESP 16
[2017-02-03] MEDS: LACTATED RINGER'S 1,000 ML IV SCH ×2 (01:49→03:38)
[2017-02-03] MEDS: HYDROmorphONE 1 MG/ML SYG IV PRN (04:35)
[2017-02-03] MEDS: DIPHENHYDRAMINE 25 MG CAP PO PRN (04:35)
[2017-02-03 05:41] LABS: HEMOGLOBIN 10.1 g/dl (12.0-16.0)
[2017-02-03] MEDS: traMADol 50 MG TAB PO SCH ×2 (06:00)
[2017-02-03] MEDS: PANTOPRAZOLE (EC) 40 MG TAB PO SCH (06:00)
[2017-02-03 06:45] LABS: MAGNESIUM 1.6 mg/dl (1.7-2.5); PHOSPHORUS 3.3 mg/dl (2.5-4.9)
[2017-02-03 06:50] LABS: CALCIUM 8.8 mg/dl (8.4-10.2); CREATININE 0.46 mg/dl (0.44-1.00)
--- NOTE | 2017-02-03 07:02 | PDOCDIS ---
Discharge Instructions DIAGNOSIS Discharge Diagnosis s/p right anterior HUMBLE CONDITION Patient Condition: Good HOME CARE INSTRUCTIONS: Diet Instructions: Regular ACTIVITY: Activity Restrictions: Slowly Increase Activity Rest between Activity Avoid heavy lifting Do not operate Machinery Do not operate Power Tool Avoid Heavy Housework Keep Limb Elevated Weight Bearing Bathing Restrictions: Shower FOLLOW UP/APPOINTMENTS Follow-up Plan follow up in the office on 02/13/17 OTHER ORDERS: Other Orders: S/P Anterior HUMBLE Physical Therapy: Three times per week at home x 2 weeks Daily in Rehab/SNF WB STATUS: WBAT Strengthening exercises for both upper and un-operated lower extremities. 1. Gait training with front wheeled walker 2. Wide base gait, no pivot turns. 3. Abductor strengthening. 4. Quadriceps and hamstring strengthening. 5. May switch to cane in contra lateral hand 6 weeks after surgery. 6. Physical Therapy can open case if nursing is not available. 7. Ice Packs while at rest to surgical wound for 20 minutes, 3 times/day. 8. Patient requires mobile SCDs to reduce risk of developing DVT following HUMBLE. Patient will use the mobile SCDs for 30 days postoperatively. Hip Precautions: No posterior hip precautions. Bathing assistance by home health aide twice weekly if Medicare patient. Occupational Therapy: Evaluation for assistive devices and ADL training. Wound Care: Keep incision dry & covered with Tegaderm until first visit with Dr. Mccoy Anticoagulation Orders: Enteric Coated Aspirin 325 mg po bid x 6 weeks from date of surgery Follow-up:Call for an appointment with Dr. Mccoy in 1 week after discharged from hospital at DME Orders: FRANCESCO, 3-in-1 Commode, Mobile SCDs FARZANA CABRERA PA-C Feb 03, 2017 07:02
[2017-02-03] MEDS ORDERED: HYDR-3498 PO (07:03)
[2017-02-03] MEDS ORDERED: PANT40TA4 PO (07:03)
[2017-02-03] MEDS ORDERED: TRAM50TA2 PO (07:03)
[2017-02-03] MEDS ORDERED: ASPI325T32 PO (07:03)
[2017-02-03 07:38] VITALS: BP 103/53; RESP 17
--- NOTE | 2017-02-03 08:53 | PN ---
Date/Time of Note Date/Time of Note DATE: 02/03/17 TIME: 08:52 Assessment/Plan Lines/Catheters IV Catheter Type (from Nrsg): Peripheral IV Nunn in Place (from Nrsg): No Assessment/Plan Assessment/Plan Stable POD #3, s/p right anterior HUMBLE -pain meds prn -ASA/SCDs -OOB with PT -dressing changed -d/c home today -follow up in the office in 1 week Subjective 24 Hr Interval Summary No acute overnight events. Pain improved and feeling much better overall. VSS, afebrile. Will plan to go home today. Exam/Review of Systems Vital Signs Vitals Vital Signs Date Time Temp Pulse Resp B/P Pulse Ox O2 Delivery O2 Flow Rate FiO2 02/03/17 07:38 98.0 82 17 103/53 95 01/31/17 19:52 Room Air 01/31/17 14:25 2.0 Intake and Output 02/02/17 02/02/17 02/03/17 14:59 22:59 06:59 Intake Total 1120 ml 500 ml Output Total 700 ml Balance 420 ml 500 ml Exam Free Text/Dictation Dressing dry Incision clean, dry, and intact without redness or drainage 5/5 Quadriceps, Tibialis Anterior, EHL, Gastroc, Soleus, Peroneals Normal sensation Palpable DT/PT, CR <2 sec No distal edema Results Result Diagram: 02/03/17 0435 02/03/17 0435 FARZANA CABRERA PA-C Feb 03, 2017 08:53
[2017-02-03] MEDS: DOCUSATE SODIUM 100 MG CAP PO SCH (09:02)
[2017-02-03] MEDS: HYDROCODONE/APAP (5/325) TAB PO PRN ×2 (09:02→12:47)
[2017-02-03] MEDS: MAGNESIUM OXIDE 400 MG TAB PO SCH (09:03)
[2017-02-03] MEDS: CHOLECALCIFEROL 1,000 UNIT TAB PO SCH (09:03)
[2017-02-03] MEDS: ASPIRIN (EC) 325 MG TAB PO SCH (09:03)
--- NOTE | 2017-02-03 09:48 | CONS ---
Date/Time of Note Date/Time of Note DATE: 02/03/17 TIME: 09:45 Assessment/Plan Assessment/Plan Chief Complaint/Hosp Course Impression: She is doing well. She is having less pain and has been cleared by physical therapy and were thorough to go home. She does have a low magnesium level. Plan: 1. Will replace magnesium today. 2. Patient can be discharged home. She will continue oral magnesium supplements and will increase to 3 times a day. 3. Patient will follow up with her PCP for further magnesium management. Problems: Consultation Date/Type/Reason Admit Date/Time Jan 31, 2017 at 05:06 Initial Consult Date 24 HR Interval Summary Free Text/Dictation This patient is now 3 days postop a right total hip replacement. She is feeling better. She does have a history of low magnesium and is usually on oral magnesium replacement. Constitutional: improved, no complaints Exam/Review of Systems Vital Signs Vitals Vital Signs Date Time Temp Pulse Resp B/P Pulse Ox O2 Delivery O2 Flow Rate FiO2 02/03/17 07:38 98.0 82 17 103/53 95 01/31/17 19:52 Room Air 01/31/17 14:25 2.0 Intake and Output 02/02/17 02/02/17 02/03/17 15:00 23:00 07:00 Intake Total 1120 ml 500 ml Output Total 700 ml Balance 420 ml 500 ml Exam Constitutional: alert, oriented, well developed Respiratory: clear to auscultation, normal air movement Cardiovascular: regular rate and rhythm Gastrointestinal: non-tender, soft Musculoskeletal: nl extremities to inspection Results Result Diagram: 02/03/17 0435 02/03/17 0435 Results 24 hrs Laboratory Tests Test 02/02/17 11:10 02/03/17 04:35 Urine Random Creatinine 50.68 Hemoglobin 10.1 L Hematocrit 30.0 L Sodium Level 140 Potassium Level 4.0 Chloride Level 94 L Carbon Dioxide Level 35 H Anion Gap 15 Blood Urea Nitrogen 9 Creatinine 0.46 Glucose Level 114 Calcium Level 8.8 Phosphorus Level 3.3 Magnesium Level 1.6 L Medications Medications Current Medications Lactated Ringer's (Lr) 1,000 ml @ 100 mls/hr Q10H IV Last administered on 02/01t 02:02; Admin Dose 100 MLS/HR; Start 01/31/17 at 06:00 Miscellaneous Information 1 ea NOTE XX ; Start 01/31/17 at 16:00; Stop 02/04/17 at 15:59 Cholecalciferol (Vitamin D) 1,000 unit BID PO Last administered on 02/03/17 09 :03; Admin Dose 1,000 UNIT; Start 01/31/17 at 21:00 Magnesium Oxide 500 mg 500 mg BID PO Last administered on 02/03/17 09:03; Admin Dose 500 MG; Start 01/31/17 at 21:00 Lactated Ringer's (Lr) 1,000 ml @ 125 mls/hr Q8H IV Last administered on 13:58; Admin Dose 125 MLS/HR; Start 01/31/17 at 09:49 Tramadol HCl (Ultram) 50 mg Q6 PO Last administered on 02/02/17 18:05; Admin Dose 50 MG; Start 01/31/17 at 12:00; Stop 02/03/17 at 11:59 Acetaminophen/ Hydrocodone Bitart ([place] (5/325)) 1 tab Q4H PRN PO PAIN LEVEL 1 -3; Start 01/31/17 at 10:00 Acetaminophen/ Hydrocodone Bitart ([place] (5/325)) 2 tab Q4H PRN PO PAIN LEVEL 4 -7 Last administered on 02/03/17 09:02; Admin Dose 2 TAB; Start 01/31/17 at 10: 00 Hydromorphone HCl (Dilaudid) 1 mg Q3H PRN IV PAIN LEVEL 8-10 Last administered on 02/03/17 04:35; Admin Dose 1 MG; Start 01/31/17 at 10:00 Ondansetron HCl (Zofran Inj) 4 mg Q6H PRN IV NAUSEA AND/OR VOMITING Last administered on 02/01/17 09:07; Admin Dose 4 MG; Start 01/31/17 at 10:00 Bisacodyl (Dulcolax Supp) 10 mg Q12H PRN [place] CONSTIPATION; Start 01/31/17 at 10: 00 Magnesium Hydroxide (Milk Of Mag) 30 ml BID PRN PO CONSTIPATION; Start at 10:00 Sodium Biphosphate/ Sodium Phosphate (Fleet Enema) 133 ml DAILY PRN [place] CONSTIPATION; Start 01/31/17 at 10:00 Docusate Sodium (Colace) 100 mg BID PO Last administered on 02/03/17 09:02; Admin Dose 100 MG; Start 01/31/17 at 21:00 Diphenhydramine HCl (Benadryl) 25 mg Q6H PRN PO PRURITUS Last administered on 04:35; Admin Dose 25 MG; Start 01/31/17 at 10:00 Aspirin (Ecotrin) 325 mg BID PO Last administered on 02/03/17 09:03; Admin Dose 325 MG; Start 02/01/17 at 09:00 Pantoprazole (Protonix Tab) 40 mg BID@06,18 PO Last administered on 02/02/17 18:04; Admin Dose 40 MG; Start 01/31/17 at 18:00 Diphenhydramine HCl (Benadryl) 25 mg Q6H PRN IV itchiness Last administered on 02/01/17 12:25; Admin Dose 25 MG; Start 01/31/17 at 21:30 HELENA CANTU MD Feb 03, 2017 09:48
[2017-02-03] MEDS ORDERED: MAGNESIUM SULFATE 2 GM/50 ML 50 ML IVPB ONE (11:00)
--- NOTE | 2017-02-03 12:51 | DS ---
Date/Time of Note Date/Time of Note DATE: 02/03/17 TIME: 12:46 Discharge Summary Admission/Discharge Info Admit Date/Time Jan 31, 2017 at 05:06 Discharge Date/Time 02/03/2017 Discharge Diagnosis s/p right anterior HUMBLE Patient Condition: Good Procedures Right anterior total hip arthroplasty Hospital Course This is a 56-year-old female who was seen in the clinic initially complaining of right hip pain. X-rays demonstrated advanced osteoarthritis of the right hip and it was thought she would benefit from right anterior total hip arthroplasty. On 01/31/2017, the patient was admitted and taken to the operating room, where she underwent a right anterior total hip arthroplasty. There were no intraoperative complications. The patient tolerated the procedure well. She was taken to recovery room in stable condition. Pain was well-controlled oral pain medication. She was started on aspirin and SCDs for DVT prophylaxis. She remained hemodynamically stable and neurovascularly intact throughout her hospital stay. She began physical therapy on postoperative day 1 and continues to make a progress. Ultimately she was deemed stable for discharge home on postoperative day 3. Prior to discharge, the incision was inspected and noted to be clean dry and intact. Dressing changes were done prior to patient going home. DISCHARGE INSTRUCTIONS: The patient be discharged home in stable condition. She is to resume a normal diet. She is weightbearing as tolerated on the right lower extremity. She will begin physical therapy with home health. She will take the medication noted in this summary and resume all of her normal home medication. The patient is to call the office or go to the emergency room for any concerns including increased redness, swelling, drainage, fever or any concerns regarding the operation or site of incision. Home Meds Active Scripts Pantoprazole* (Pantoprazole*) 40 Mg Tablet.dr, 40 MG PO BID@06,18 for 40 Days, # 40 Prov:FARZANA CABRERA PA-C 02/03/17 Tramadol HCl (Tramadol HCl) 50 Mg Tablet, 50 MG PO Q6 for 30 Days, #60 TAB Prov:FARZANA CABRERA PA-C 02/03/17 Hydrocodone Bit-Acetaminophen (Hydrocodone Bit-APAP) 5-325MG Tablet, 2 TAB PO Q4H Y for PAIN LEVEL 4-7 for 30 Days, #60 TAB Prov:FARZANA CABRERA PA-C 02/03/17 Aspirin (Aspir-Ayaka) 325 Mg Tablet., 325 MG PO BID for 40 Days, #80 Prov:FARZANA CABRERA PA-C 02/03/17 Reported Medications Cholecalciferol* (Vitamin D3*) 1,000 Unit Tablet, 1000 UNIT PO BID, TAB 01/31/17 [Potassium] No Conflict Check, 99 MEQ PO DAILY 01/31/17 Magnesium Oxide* (Magnesium Oxide*) 400 Mg Tablet, 500 MG PO BID, TAB 01/31/17 Discontinued Scripts Lorazepam* (Lorazepam*) 1 Mg Tablet, 1 MG PO Q8 Y for ANXIETY for 30 Days, TAB Prov:TG AGUIRRE MD 10/27/15 Cyanocobalamin/Fa/Pyridoxine (B Complex-Folic Acid Tablet) 1 Tab Tablet, 1 TAB PO DAILY for 30 Days, TAB Prov:TG AGUIRRE MD 10/27/15 Nicotine* (Nicoderm* Patch) 1 Patch Patch, 1 PATCH TRANSDERM Q24H for 30 Days, PATCH Prov:TG AGUIRRE MD 10/27/15 Chlordiazepoxide* (Chlordiazepoxide*) 25 Mg Capsule, 25 MG PO Q8 for 4 Days, CAP Prov:TG AGUIRRE MD 10/27/15 Follow-up Plan Follow-up in the office on 02/10/2017 Primary Care Provider Kendall Aguirre Pending Labs Laboratory Tests Test 02/03/17 04:35 Hemoglobin 10.1g/dl (12.0-16.0) Hematocrit 30.0% (37.0-47.0) Sodium Level 140mmol/L (135-144) Potassium Level 4.0mmol/L (3.5-5.1) Chloride Level 94mmol/L (97-110) Carbon Dioxide Level 35mmol/L (21-31) Anion Gap 15 (8-16) Blood Urea Nitrogen 9mg/dl (7-20) Creatinine 0.46mg/dl (0.44-1.00) Glucose Level 114mg/dl (70-220) Calcium Level 8.8mg/dl (8.4-10.2) Phosphorus Level 3.3mg/dl (2.5-4.9) Magnesium Level 1.6mg/dl (1.7-2.5) FARZANA CABRERA PA-C Feb 03, 2017 12:51
--- NOTE | 2017-02-05 17:14 | CONS ---
DATE OF ADMISSION: 01/31/2017 DATE OF CONSULTATION: 02/03/2017 Thank very much for allowing me to evaluate this 56-year-old female, who just underwent total right hip arthroplasty. HISTORICAL EVENTS: As you well know, this patient has had progressive disabling pain involving her right hip, and for this, elected to proceed with surgery. Postoperatively on the orthopedic floor she is comfortable without cough, wheezing, shortness of breath, nausea, vomiting, abdominal or chest pain. PAST MEDICAL HISTORY: 1. Smoking. 2. Undergoing bilateral iliac artery endarterectomies and renal artery bypass graft. 3. Undergoing a colostomy and reversal of same for diverticular disease. 4. History of hypertension. 5. Has not had a recent cardiac stress test. ALLERGIES: ALLERGIES INCLUDE SULFA, HYDROCORTISONE, LIDOCAINE, AND METHYLPREDNISOLONE. MEDICATIONS: Meds include Advil p.r.n. FAMILY HISTORY: Family history can be reviewed later. PHYSICAL EXAMINATION: GENERAL: A bright female in no acute distress. VITAL SIGNS: Blood pressure 122/80, pulse 70, respirations. She was afebrile. HEENT: Eyes, extraocular muscles were full. Nose, mouth and throat were normal. NECK: Neck was supple. There was no jugular venous distention, thyroid enlargement, adenopathy. Carotids 2 plus. LUNGS: Lungs clear. HEART: Rhythm regular. No murmur. No 3rd or 4th sound. ABDOMEN: Nontender. Liver and spleen were not palpable. No mass or tenderness were noted. EXTREMITIES: No edema. Calves nontender. Feet were warm bilaterally. IMPRESSION: 1. Status post right hip replacement. Doing well. 2. History of peripheral vascular disease. Undergoing the above surgical intervention. Will be observing closely for signs and symptoms of vascular insufficiency involving the lower extremities as well as deep vein thrombosis involving lower extremities despite appropriate deep vein thrombosis prophylaxis. Thank you very much for allowing me to evaluate her and will follow her daily with you. Dictated By: Randall Edwards MD /brent/libby /Document#: [id number]
== END 2017-02-03 13:26 | disposition home health service (06) | DRG 470 ==
LOC: REC 05:06 → MS1 11:27
PROVIDERS: ADMIT Orthopaedic Surgery; ATTEND Orthopaedic Surgery
PROC: 0SR904A Replacement of Right Hip Joint with Ceramic on Polyethylene Synthetic Substitute, Uncemented, Open Approach (ICD-10-PCS; principal; 2017-01-31 07:00)
DX: M16.11 Unilateral primary osteoarthritis, right hip (principal); E83.42 Hypomagnesemia; I10 Essential (primary) hypertension; J44.9 Chronic obstructive pulmonary disease, unspecified; F10.10 Alcohol abuse, uncomplicated; I73.9 Peripheral vascular disease, unspecified; Z79.82 Long term (current) use of aspirin; Z88.2 Allergy status to sulfonamides; Z87.891 Personal history of nicotine dependence; Z90.49 Acquired absence of other specified parts of digestive tract
CPT/HCPCS: 72170; 73500; 73530; 80048; 81003; 82306; 83735; 84100; 84155; 85014; 85018; 85025; 86850; 86900; 86901; 86920; 87081; 87086; 97110; 97116; 97162; 97166; 97530; C1713; C1776; C9290; J0171; J0690; J0697; J0735; J1170; J1200; J1885; J2175; J2250; J2274; J2405; J2765; J3010; J3370; J3475; J7120

== ENCOUNTER → 2017-02-10 | Outpatient (CLI) | payer OTHER ==
[~2017-02-10] MED LIST changes: +ASPI325T32 PO; -CHLO25CA9 PO; +CHOL100062 PO; -CYAN1TAB PO; +HYDR-3498 PO; -LORA1TAB PO; +MAGN400T28 PO; -NICO-524 TRANSDERM; +PANT40TA4 PO; +POTASSIUM PO; +TRAM50TA2 PO
--- NOTE | 2017-02-10 11:19 | PN ---
Date/Time of Note Date/Time of Note DATE: 02/10/17 TIME: 11:14 Assessment/Plan VTE Prophylaxis VTE Prophylaxis Intervention: ambulation, other Assessment/Plan Assessment/Plan ASSESSMENT: 10 days status post right anterior total hip arthroplasty PLAN: The luly were removed today, and Steri-Strips were applied. She is to continue taking aspirin 325 mg twice daily for DVT prophylaxis. I did tell her to hold off on taking ibuprofen while she is on aspirin. She can use tramadol for mild pain in the [place] she was prescribed for more intense pain. She should continue doing physical therapy with home health and transition to a cane as an assistive device. We will see her back in 4 weeks for repeat evaluation. She is to call the office if she has any concerns in the meantime. Subjective 24 Hr Interval Summary Free Text/Dictation Fior presents today for her first postoperative appointment on her right hip. She is 10 days status post right anterior total hip arthroplasty. She is doing very well overall. She denies significant pain but did take ibuprofen instead of the pain medication she was given. She is also taken aspirin twice daily for DVT prophylaxis. She denies any fevers or chills. She has been doing physical therapy with home health. She presents today for her first postoperative evaluation. Exam/Review of Systems Exam On exam today, she is alert and oriented 4, and in no acute distress. She is ambulating with a front wheel walker. Exam of the incision demonstrates luly to be in place. The incision itself is clean, dry, and intact. She is able to perform a straight leg raise. There is no erythema, warmth, pus, or drainage noted. There is no pain with passive range of motion of the right hip. Her leg lengths are equal. Compartments are soft. Homans sign is negative. she is neurovascularly intact distally. IMAGING: X-rays of the right hip were obtained today and reviewed by me. They demonstrate the prosthesis to be in good anatomic place. There is no fractures or dislocations identified. FARZANA CABRERA PA-C Feb 10, 2017 11:19
--- NOTE | 2017-02-10 16:16 | RADRPT ---
PROCEDURE: XR Right hip and pelvis. CLINICAL INDICATION: Right hip pain. Pelvic pain. Postop. TECHNIQUE: Two views. Frontal pelvis and frontal right hip. COMPARISON: 01/31/2017 . FINDINGS: There is no fracture or dislocation. The soft tissues are normal. There is a right hip total arthroplasty which appears satisfactory. The left hip is grossly normal. There is no lytic or blastic lesion. The upper pelvis is not completely included on the image. IMPRESSION: 1. Satisfactory postoperative appearance of the right hip. 2. Grossly normal appearance of the left hip. RPTAT: QQ .Sukhwinder Kilgore MD, Date Time Electronically viewed and signed by .Sukhwinder Kilgore MD, on 02/10/2017 16:16 .R/
== END | disposition home or self-care (01) ==
LOC: HKI 10:32
PROVIDERS: ATTEND Orthopaedic Surgery
DX: Z47.1 Aftercare following joint replacement surgery (principal); Z96.641 Presence of right artificial hip joint
CPT/HCPCS: 73502